=== PATIENT | male | born 1950 | race Caucasian/White ===

== ENCOUNTER → 2017-08-26 | Outpatient (CLI) | payer MEDICARE, OTHER ==
--- NOTE | 2017-08-26 07:54 | MR ---
EXAMINATION TYPE: MR liver wo/w con DATE OF EXAM: 08/26/2017 COMPARISON: NONE HISTORY: Liver disease, unspecified per order. CONTRAST: Standard multiplanar, multisequence MRI departmental protocol utilizing 8.5 mL intravenous Gadavist g adolinium contrast. Imaging is performed of the abdomen focusing on the liver. History of back pain per patient. FINDINGS: Exam is suboptimal as is degraded by patient respiratory motion artifact. Liver/GB: Liver is overall somewhat small in size and lobulated in contour suggesting underlying cirr hosis. Liver is overall heterogeneous in appearance. No definitive solid or cystic focal lesions are identified. There is suspected stone filled contracted gallbladder at level of gallbladder fossa. The re is no suspicious intrahepatic or extra hepatic biliary dilatation. No surrounding ascites is seen. There is patent nondilated portal vein. There are patent hepatic veins draining into IVC. Recanalize d umbilical vein is present. Other: Spleen is upper limits of normal in size. Lung bases are clear. Bilateral gynecomastia is part ially imaged. Pancreas is somewhat atrophic with thin-walled subcentimeter cysts scattered along its course. Adrenal glands are within normal limits. Some cortical thinning in both kidneys is seen witho ut hydronephrosis. There is no suspicious small or large bowel dilatation. Diverticula are seen in th e slightly redundant sigmoid colon in the left lower quadrant. IMPRESSION: 1. Probable cirrhosis. Heterogeneity without definitive worrisome solid mass. Bilateral gynecomastia is noted. No ascites is seen. Spleen is upper limits of normal in size. Imaging guided random biopsy for tissue confirmation can be performed if desired. 2. There are few thin-walled cysts scattered throughout the pancreas, suspect pseudocysts related to pancreatitis. Other etiologies are not excluded. Correlate clinically.
== END ==
LOC: RADMRIMAIN 06:26
PROVIDERS: ATTEND Internal Medicine Gastroenterology
DX: N62 Hypertrophy of breast (principal); K86.2 Cyst of pancreas; K76.9 Liver disease, unspecified
CPT/HCPCS: 74183; A9581

== ENCOUNTER → 2018-05-19 | Outpatient (CLI) | payer MEDICARE, OTHER ==
--- NOTE | 2018-05-19 18:09 | BD ---
EXAMINATION TYPE: Axial Bone Density DATE OF EXAM: 05/19/2018 COMPARISON: NONE CLINICAL HISTORY: 67-year-old male screening for osteoporosis Height: 62.5 IN Weight: 217 LBS FRAX RISK QUESTIONS: Secondary Osteoporosis: 5. Chronic liver disease: HEPATITIS RISK FACTORS HISTORY OF: Spine Fracture: UPPER VERTEBRATE FX When: 1970 History of Wrist Fracture: LEFT WRIST When: AGE 62 Active: LIMITED Diet low in dairy products/other sources of calcium: YES Lost more than 2 inches in height since high school: YES 3" MEDICATIONS: Additional Medications: PAIN MEDS BEST IMAGES POSSIBLE. PT HAS SEVERE PAIN LYING ON BACK. PT COULD NOT TURN FEET IN FOR HIPS. EXAM MEASUREMENTS: Bone mineral densitometry was performed using the [employer] System. Bone mineral density as measured about the Lumbar spine is: ----- L1-L4(G/cm2): 1.259 T Score Values are as follows: ----- L2: 0.7 ----- L3: 0.2 ----- L4: 0.4 ----- L1-L4: 0.7 Bone mineral density BASELINE Bone mineral density about the R hip (g/cm2): 0.875 Bone mineral density about the L hip (g/cm2): 0.859 T Score values are as follows: -----R Neck: -1.2 -----L Neck: -1.3 -----R Total: -0.2 -----L Total: 0.1 Bone mineral density BASELINE IMPRESSION: Osteopenia (T Score between -2.5 and -1). There is slightly increased risk of fracture and the patient may be considered for treatment. Re-Screen 2-5 years. NOTE: T-SCORE=SD OF THE YOUNG ADULT MEAN.
== END | disposition home or self-care (01) ==
LOC: RADBDWWP 09:57
PROVIDERS: ATTEND Internal Medicine
DX: M85.88 Other specified disorders of bone density and structure, other site (principal)
CPT/HCPCS: 77080

== ENCOUNTER → 2018-06-05 | Outpatient (CLI) | payer MEDICARE, OTHER ==
--- NOTE | 2018-06-05 14:13 | MR ---
EXAMINATION TYPE: MR lumbar spine wo con DATE OF EXAM: 06/05/2018 1:54 PM COMPARISON: NONE HISTORY: Radiculopathy, lumbar region / Spondylosis Multiplanar, MultiSpin echo imaging of the lumbar spine was performed. L1-L2: Mild disc desiccation noted. No herniation, protrusion or disc bulging. No canal stenosis is present. Foramina are patent bilaterally. Mild superior endplate loss of height involving L2 of unce rtain age and/or etiology. L2-L3: Mild disc desiccation identified. No herniation, protrusion or disc bulging. No canal stenosi s is present. Foramina are patent bilaterally. Mild superior endplate loss of height involving L3 of uncertain age and/or etiology. L3-L4: Normal disc appearance without desiccation. No disc herniation or protrusion. Foramina are pat ent bilaterally. Mild to moderate loss of height superior endplate of L4 of uncertain age and/or etio logy. Mild bony convexity results in mild effacement ventral thecal sac. There is hypertrophy of the ligamentum flavum and facet joint arthropathy result in borderline central stenosis. L4-L5: Moderate disc desiccation. Circumferential disc bulge greatest posteriorly with annular tear. Hypertrophy ligamentum flavum and facet joint arthropathy resulting in mild central stenosis. No evid ence for foraminal encroachment. L5-S1: Normal disc appearance without desiccation. No herniation, protrusion or disc bulging. No ca nal stenosis is present. Foramina are patent bilaterally. Bone marrow signal is heterogenous. This could reflect bone marrow reconversion. Metastatic disease i s not excluded. Correlate with history of primary malignancy. Correlate with CBC. Lumbar segments are intact. No paraspinal masses are identified. Conus medullaris has a normal appearance. IMPRESSION: 1. Loss of vertebral body height at multiple levels of uncertain age and/or etiology. Posterior conve xity superior posterior L4 effaces the ventral thecal sac and results in borderline central stenosis. 2. Mild central stenosis L4-5. See above. 3. Bone marrow heterogeneity. See above discussion.
== END | disposition home or self-care (01) ==
LOC: RADMRIMAIN 13:17
PROVIDERS: ATTEND Physical Medicine & Rehabilitation
DX: M48.061 Spinal stenosis, lumbar region without neurogenic claudication (principal)
CPT/HCPCS: 72148

== ENCOUNTER → 2018-06-12 | Outpatient (CLI) | payer MEDICARE, OTHER ==
--- NOTE | 2018-06-12 14:11 | NM ---
EXAMINATION TYPE: NM bone scan whole body DATE OF EXAM: 06/12/2018 COMPARISON: MRI lumbar spine one week ago. HISTORY: Low back pain per order. Recent abnormal MRI Delayed whole-body scanning was performed following the injection of 23.4 mCi Tc 99m MDP. Images acq uired 3 hours post injection. Whole body images in the anterior and posterior projection acquired. FINDINGS: No suspicious increased radiotracer uptake to suggest metastatic disease to the bone or other suspici ous abnormality. No suspicious uptake is seen in the lumbar spine to suggest acute compression fractu re. Mild distention of bladder seen. Mild to moderate symmetric uptake bilateral knee joints is prese nt product of moderate to advanced degenerative change. IMPRESSION: As above.
== END | disposition home or self-care (01) ==
LOC: RADNMMAIN 10:02
PROVIDERS: ATTEND Internal Medicine
DX: M54.5 Low back pain (principal)
CPT/HCPCS: 78306; A9503

== ENCOUNTER 2019-05-19 17:42 | Emergency (ER) | payer MEDICARE, OTHER ==
[2019-05-19 18:45] LABS: Basophils # (A) 0.1 k/uL (0-0.2); Basophils % (A) 1 %; Eosinophils # (A) 0.2 k/uL (0-0.7); Eosinophils % (A) 2 %; HCT 44.9 % (39.0-53.0); HGB 15.3 gm/dL (13.0-17.5); Lymphocytes # (A) 1.7 k/uL (1.0-4.8); Lymphocytes % (A) 19 %; MCH 32.9 pg (25.0-35.0); Mean Platelet Volume 7.2; Monocytes # (A) 0.8 k/uL (0-1.0); Monocytes % (A) 9 %; Neutrophils # (A) 6.1 k/uL (1.3-7.7); Neutrophils % (A) 67 %; Platelet Count 248 k/uL (150-450); RBC 4.63 m/uL (4.30-5.90); RDW 13.2 % (11.5-15.5); WBC 9.1 k/uL (3.8-10.6)
[2019-05-19 18:48] LABS: ALT 17 U/L (4-49); AST 40 U/L (17-59); African American GFR (CKD) >90 (>60 ml/min/1.73 sqM); Albumin 3.9 g/dL (3.5-5.0); Alkaline Phosphatase 94 U/L (38-126); Anion Gap 12 mmol/L; Blood Urea Nitrogen 13 mg/dL (9-20); Calcium 8.6 mg/dL (8.4-10.2); Carbon Dioxide 33 mmol/L (22-30); Chloride 92 mmol/L (98-107); Glucose 103 mg/dL (74-99); Non-African American GFR(CKD) >90 (>60 ml/min/1.73 sqM); Potassium 3.3 mmol/L (3.5-5.1); Sodium 137 mmol/L (137-145); Total Bilirubin 1.2 mg/dL (0.2-1.3)
--- NOTE | 2019-05-19 18:49 | US ---
EXAMINATION TYPE: US venous doppler duplex LE RT DATE OF EXAM: 05/19/2019 6:06 PM COMPARISON: NONE CLINICAL HISTORY: pain, swelling right leg r/o dvt. Pain and swelling right leg. SIDE PERFORMED: Right TECHNIQUE: The lower extremity deep venous system is examined utilizing real time linear array sonog more with graded compression, doppler sonography and color-flow sonography. VESSELS IMAGED: External Iliac Vein (EIV) Common Femoral Vein Deep Femoral Vein Greater Saphenous Vein * Femoral Vein Popliteal Vein Small Saphenous Vein * Proximal Calf Veins (* superficial vessels) Right Leg: No evidence of DVT in veins imaged at this time from prox calf veins to EIV. Limited due to edema. IMPRESSION: No sign of deep vein thrombosis in the right leg.
[2019-05-19 19:03] LABS: Partial Thromboplastin Time 23.8 sec (22.0-30.0); Prothrombin Time 10.4 sec (9.0-12.0)
[2019-05-19] MEDS ORDERED: POTASSIUM CHLORIDE ER 20 MEQ TAB.ER PO STA (19:05)
--- NOTE | 2019-05-19 19:31 | XR ---
EXAMINATION TYPE: XR chest 2V DATE OF EXAM: 05/19/2019 COMPARISON: NONE HISTORY: Leg edema TECHNIQUE: 2 views FINDINGS: There is no heart failure. There is mild blunting of the posterior costophrenic angles. Hea rt is top normal in size. There is poor inspiration. Bony thorax appears intact. IMPRESSION: Small pleural effusions. Poor inspiration.
[2019-05-19] MEDS ORDERED: HYDROcodone/APAP 5-325MG 1 EACH TAB PO STA (19:47)
[2019-05-19] MEDS ORDERED: SODIUM CHLORIDE 0.9% 500 ML 500 ML IV ONE (19:47)
--- NOTE | 2019-05-19 19:52 | ED ---
Lower Extremity Injury HPI - General Chief Complaint: Extremity Injury, Lower Stated Complaint: poss blood clot Time Seen by Provider: 05/19/19 17:53 Source: patient Mode of arrival: wheelchair Limitations: no limitations - History of Present Illness Initial Comments: 68yo male today for chief complaint of right leg swelling x 2-3 days. Patient states that he has noted some increase right leg swelling he states there is however chronic swelling of the legs bilaterally. Daughter who is at baseline states patient has chronic pain and leg swelling. She denies recalling any fevers she states patient has chronic right hip and low back pain denies noting changes. Patient had an appointment with his PCP today, where there was noted right leg swelling. Patient was sent to r/o DVT. Patient denies history of DVT. Patient appears well on arrival no acute distress. Complaing of right hip when getting transitioned into the bed, but family/patient states this has been evaluated and ongoing for year, no new symptoms aside from right leg swelling. - Related Data Previous Rx's Medication Instructions Recorded Cephalexin [Keflex] 500 mg PO Q6HR 7 Days #28 cap 05/19/19 Allergies Allergy/AdvReac Type Severity Reaction Status Date / Time No Known Allergies Allergy Verified 05/19/19 17:48 Review of Systems ROS Statement: Those systems with pertinent positive or pertinent negative responses have been documented in the HPI. ROS Other: All systems not noted in ROS Statement are negative. Past Medical History Additional Past Medical History / Comment(s): cirrhosis and of liver, hepatitis C History of Any Multi-Drug Resistant Organisms: None Reported Past Surgical History: No Surgical Hx Reported Past Psychological History: No Psychological Hx Reported Smoking Status: Former smoker Past Alcohol Use History: Abuse, Daily Past Drug Use History: None Reported General Exam - General Exam Comments Initial Comments: General: The patient is awake and alert, in no distress Eye: +3 mm pupils are equal, round and reactive to light, extra-ocular movements are intact. No nystagmus. There is normal conjunctiva bilaterally. No signs of icterus. Ears, nose, mouth and throat: There are moist mucous membranes and no oral lesions. Neck: The neck is supple, there is no tenderness or JVD. Cardiovascular: There is a regular rate and rhythm. No murmur, rub or gallop is appreciated. Respiratory: Lungs are clear to auscultation, respirations are non-labored, breath sounds are equal. No wheezes, stridor, rales, or rhonchi. Gastrointestinal: Soft, non-distended, non-tender abdomen without masses or organomegaly noted. There is no rebound or guarding present. Musculoskeletal: Normal ROM, no tenderness. Strength 5/5. Sensation intact. Radial and DP pulses equal bilaterally 2+. Neurological: A&O x 3. CN II-XII intact grossly, There are no obvious motor or sensory deficits. Coordination appears grossly intact. Speech is normal. Skin: Skin is warm and dry.B/l LE pitting edema, mild area of water appears to a dermatitis, red rough lesions just distal to knee, slightly red, no diffuse erythema, no blistered lesions, no ulcers noted. Legs are tender b/l to palpation. Psychiatric: Cooperative, appropriate mood & affect, normal judgment. Limitations: no limitations Course Vital Signs 05/19/19 05/19/19 05/19/19 17:45 19:00 19:21 Temperature 98.2 F Pulse Rate 96 89 Respiratory 18 17 18 Rate Blood Pressure 146/87 133/76 O2 Sat by Pulse 96 99 Oximetry 05/19/19 05/19/19 20:42 21:56 Temperature 98.7 F Pulse Rate 94 69 Respiratory 16 18 Rate Blood Pressure 131/71 133/71 O2 Sat by Pulse 99 97 Oximetry Medical Decision Making - Medical Decision Making Ventricular rate 92 bpm, MI interval 180 ms, QR station 84 ms, QT/QTC 394/487 ms. This is normal sinus there is no ST elevation or depression. No specific T wave changes otherwise normal EKG. Well-appearing 5-year-old male presented for leg swelling. Came from primary care office to rule out DVT ultrasound was negative for DVT. Patient does have a dermatitis of the knee with possibly developing cellulitis different diagnosis also includes lymphedema. Patient is neurovascularly intact. There is no evidence of severe sialitis at this time. Patient has no elevation of white blood cell count, nor left shift. Patient appears slightly dry on exam, mild lactic acidosis. Patient was evaluated by my attending who recommended discharge with PCP f/u in 24-48 hours with keflex. Return parameters were discussed and patient was discharged appearing well. I contacted daughter to discuss appropriate f/u and return parameters--she verbalized understanding - Lab Data Result diagrams: 05/19/19 18:20 05/19/19 18:20 Lab Results 05/19/19 05/19/19 05/19/19 Range/Units 18:20 18:20 18:20 WBC 9.1 (3.8-10.6) k/uL RBC 4.63 (4.30-5.90) m/uL Hgb 15.3 (13.0-17.5) gm/dL Hct 44.9 (39.0-53.0) % MCV 97.0 (80.0-100.0) fL MCH 32.9 (25.0-35.0) pg MCHC 34.0 (31.0-37.0) g/dL RDW 13.2 (11.5-15.5) % Plt Count 248 (150-450) k/uL Neutrophils % 67 % Lymphocytes % 19 % Monocytes % 9 % Eosinophils % 2 % Basophils % 1 % Neutrophils # 6.1 (1.3-7.7) k/uL Lymphocytes # 1.7 (1.0-4.8) k/uL Monocytes # 0.8 (0-1.0) k/uL Eosinophils # 0.2 (0-0.7) k/uL Basophils # 0.1 (0-0.2) k/uL PT 10.4 (9.0-12.0) sec INR 1.0 (<1.2) APTT 23.8 (22.0-30.0) sec Sodium 137 (137-145) mmol/L Potassium 3.3 L (3.5-5.1) mmol/L Chloride 92 L (98-107) mmol/L Carbon Dioxide 33 H (22-30) mmol/L Anion Gap 12 mmol/L BUN 13 (9-20) mg/dL Creatinine 0.78 (0.66-1.25) mg/dL Est GFR (CKD-EPI)AfAm >90 (>60 ml/min/1.73 sqM) Est GFR (CKD-EPI)NonAf >90 (>60 ml/min/1.73 sqM) Glucose 103 H (74-99) mg/dL Lactic Ac Sepsis Rflx Plasma Lactic Acid Sergei (0.7-2.0) mmol/L Calcium 8.6 (8.4-10.2) mg/dL Total Bilirubin 1.2 (0.2-1.3) mg/dL AST 40 (17-59) U/L ALT 17 (4-49) U/L Alkaline Phosphatase 94 (38-126) U/L NT-Pro-B Natriuret Pep pg/mL Total Protein 9.0 H (6.3-8.2) g/dL Albumin 3.9 (3.5-5.0) g/dL 05/19/19 05/19/19 05/19/19 Range/Units 18:20 18:20 19:42 WBC (3.8-10.6) k/uL RBC (4.30-5.90) m/uL Hgb (13.0-17.5) gm/dL Hct (39.0-53.0) % MCV (80.0-100.0) fL MCH (25.0-35.0) pg MCHC (31.0-37.0) g/dL RDW (11.5-15.5) % Plt Count (150-450) k/uL Neutrophils % % Lymphocytes % % Monocytes % % Eosinophils % % Basophils % % Neutrophils # (1.3-7.7) k/uL Lymphocytes # (1.0-4.8) k/uL Monocytes # (0-1.0) k/uL Eosinophils # (0-0.7) k/uL Basophils # (0-0.2) k/uL PT (9.0-12.0) sec INR (<1.2) APTT (22.0-30.0) sec Sodium (137-145) mmol/L Potassium (3.5-5.1) mmol/L Chloride (98-107) mmol/L Carbon Dioxide (22-30) mmol/L Anion Gap mmol/L BUN (9-20) mg/dL Creatinine (0.66-1.25) mg/dL Est GFR (CKD-EPI)AfAm (>60 ml/min/1.73 sqM) Est GFR (CKD-EPI)NonAf (>60 ml/min/1.73 sqM) Glucose (74-99) mg/dL Lactic Ac Sepsis Rflx Y Plasma Lactic Acid Sergei 2.4 H* (0.7-2.0) mmol/L Calcium (8.4-10.2) mg/dL Total Bilirubin (0.2-1.3) mg/dL AST (17-59) U/L ALT (4-49) U/L Alkaline Phosphatase (38-126) U/L NT-Pro-B Natriuret Pep 179 pg/mL Total Protein (6.3-8.2) g/dL Albumin (3.5-5.0) g/dL Disposition Clinical Impression: Right leg swelling Disposition: HOME SELF-CARE Condition: Good Instructions (If sedation given, give patient instructions): Cellulitis (ED), Leg Edema (ED), Venous Insufficiency (DC) Additional Instructions: Please use medication as discussed. Please follow-up with family doctor in the next 2 days. Please return to emergency room if the symptoms increase or worsen or for any other concerns. Prescriptions: Cephalexin [Keflex] 500 mg PO Q6HR 7 Days #28 cap Is patient prescribed a controlled substance at d/c from ED?: No Referrals: Erinn Raymundo MD [Primary Care Provider] - 1-2 days Time of Disposition: 20:25
[2019-05-19] MEDS ORDERED: cefTRIAXone IN SWFI 1,000 MG/10 ML SYRINGE IVP STA (20:24)
[2019-05-19 20:43] VITALS: TEMP 98.7
[2019-05-19 21:58] VITALS: BP 133/71; PULSE 69; RESP 18
== END 2019-05-19 21:56 | disposition home or self-care (01) ==
LOC: EC 17:42
DX: R60.0 Localized edema (principal); L30.9 Dermatitis, unspecified; E87.2 Acidosis; G89.29 Other chronic pain; M25.551 Pain in right hip; M54.5 Low back pain; Z87.891 Personal history of nicotine dependence
CPT/HCPCS: 99284; 96374; 96361; 36415; 93005; 83880; 80053; 83605; 85025; 85610; 85730; 87040; 71046; 93971; J0696

== ENCOUNTER → 2021-01-15 | Outpatient (CLI) | payer MEDICARE, OTHER ==
--- NOTE | 2021-01-15 10:58 | US ---
EXAMINATION TYPE: US liver DATE OF EXAM: 01/15/2021 COMPARISON: Liver MRI 08/26/2017 CLINICAL HISTORY: K76.9 Liver disease, unspecified. 08-26-17 MRI EXAM MEASUREMENTS: Liver Length: 13.9 cm Gallbladder Wall: 0.2 cm CBD: 0.3 cm Right Kidney: 10.0x5.1x6.2 cm Pancreas: Obscured by bowel gas Liver: Small and heterogenous Gallbladder: ? Large stone with RUSSELL sign Evidence for sonographic Valdovinos's sign: No CBD: wnl Right Kidney: wnl IMPRESSION: Findings suggest stone filled gallbladder correlating with patient's prior liver MRI. Cor relate for hepatocellular disease, possible hepatic steatosis, limited exam
== END | disposition home or self-care (01) ==
LOC: RADUSWWP 08:58
PROVIDERS: ATTEND Internal Medicine Gastroenterology
DX: K76.89 Other specified diseases of liver (principal)
CPT/HCPCS: 76705

== ENCOUNTER → 2021-12-21 | Outpatient (CLI) | payer MEDICARE, OTHER ==
--- NOTE | 2021-12-21 12:26 | US ---
EXAMINATION TYPE: US liver DATE OF EXAM: 12/21/2021 COMPARISON: 01/15/2021 CLINICAL HISTORY: K70.30 ALCOHOLIC CIRRHOSIS W/O ASCITES. TECHNIQUE: Multiple sonographic images of the right upper quadrant are obtained. FINDINGS: EXAM MEASUREMENTS: Liver Length: 10.0 cm Gallbladder Wall: Not visualized CBD: Not visualized Right Kidney: 9.3 x 4.5 x 4.0 cm THREAD SEPARATOR NOTES: Exam severely limited by overlying bowel gas. Patient unable to adjust body for a n optimal study. Pancreas: Tail obscured by overlying bowel gas Liver: Heterogeneous, atrophic Gallbladder: Prior gallstone filled gallbladder not optimally visualized today. Possible echogenic area completely surrounded by bowel that has the same echogenicity. Can not determine shadowing or a ny portion of a normal gallbladder. Evidence for sonographic Valdovinos's sign: No CBD: Obscured by overlying bowel gas Right Kidney: Limited visualization. IMPRESSION: 1. Exam limited due to body habitus. 2. Prior cholelithiasis not confirmed on the current exam. Gallbladder is poorly visualized. 3. No ascites identified
== END | disposition home or self-care (01) ==
LOC: RADUSWWP 10:10
PROVIDERS: ATTEND Internal Medicine Gastroenterology
DX: K70.30 Alcoholic cirrhosis of liver without ascites (principal)
CPT/HCPCS: 76705